=== PATIENT | male | born 1970 | race Caucasian/White ===

== ENCOUNTER 2019-06-10 20:19 | Emergency (ER) | payer MEDICAID ==
[~2019-06-10] VITALS: Ht 175.3 cm; Wt 90.7 kg
--- NOTE | 2019-06-10 20:40 | NUR ---
ED Nurse Note: RECIEVED PT FROM STREETS, HERE WITH C/O FEELING SUICIDAL, PT HAS HX OF DEPRESSION AND STATES HAS PLAN TO JUMP OFF BUILDING, PT OFF MEDS, EFFEXOR, DENEIS BEING HOMICIDAL OR ANY HALLUCINATIONS, PT IS CALM AND COOPERATIVE, ASKING FOR PSYCH PLACEMENT AND FOOD, PT PLACED ON SUICIDAL PRECAUTIONS IMMEDIATELY, WILL CONTINUE TO CLOSELY MONITOR.
--- NOTE | 2019-06-10 20:45 | Emergency Room Report ---
History of Present Illness General Chief Complaint: Behavioral Complaint Source: Patient Present Illness HPI Patient presents with complaints of suicidal ideation Reports that he has a history of depression Denies any headache denies any chest pain denies any abdominal pain Patient reports that he was on effexor many years ago however has been off his medications and was doing well prior to this event and episode Patient reports thoughts of jumping off a building Allergies: Coded Allergies: No Known Allergies (Unverified , 06/10/19) Patient History Past Medical History: see triage record Reviewed Nursing Documentation: PMH: Agreed; PSxH: Agreed Nursing Documentation-PMH Past Medical History: No Stated History Review of Systems All Other Systems: negative except mentioned in HPI Physical Exam Vital Signs Date Time Temp Pulse Resp B/P (MAP) Pulse Ox O2 Delivery O2 Flow Rate FiO2 06/10/19 20:22 98.4 68 14 123/75 (91) 96 Room Air Sp02 EP Interpretation: reviewed, normal General Appearance: well appearing, no apparent distress Head: normocephalic, atraumatic Eyes: bilateral eye PERRL, bilateral eye EOMI ENT: hearing grossly normal, normal pharynx, TMs + canals normal, uvula midline Neck: full range of motion, supple, no meningismus, no bony tend Respiratory: lungs clear, normal breath sounds, no rhonchi, no respiratory distress, no retraction, no accessory muscle use Cardiovascular #1: normal peripheral pulses, regular rate, rhythm, no edema, no gallop, no JVD, no murmur Gastrointestinal: normal bowel sounds, non tender, soft, no mass, no organomegaly, non-distended, no guarding, no hernia, no pulsatile mass, no rebound Genitourinary: no CVA tenderness Musculoskeletal: normal inspection Neurologic: oriented x3, responsive, road passenger firer III-XII nml as tested, motor strength/ tone normal, sensory intact Psychiatric: other - Somewhat flat affect Skin: no rash Lymphatic: normal inspection, no adenopathy Medical Decision Making Diagnostic Impression: Primary Impression: Suicidal thoughts ER Course Given the patient's history and presentation extensive blood work is initiated patient remains further medically stabilized and cleared After blood work also patient further cleared At this time patient requiring further disposition On a voluntary basis for psychiatric evaluation Patient transferred to psychiatric facility for continued care Labs Test 06/10/19 21:00 White Blood Count 9.9 K/UL (4.8-10.8) Red Blood Count 5.17 M/UL (4.70-6.10) Hemoglobin 15.1 G/DL (14.2-18.0) Hematocrit 44.9 % (42.0-52.0) Mean Corpuscular Volume 87 FL (80-99) Mean Corpuscular Hemoglobin 29.3 PG (27.0-31.0) Mean Corpuscular Hemoglobin Concent 33.7 G/DL (32.0-36.0) Red Cell Distribution Width 11.4 % (11.6-14.8) Platelet Count 272 K/UL (150-450) Mean Platelet Volume 7.5 FL (6.5-10.1) Neutrophils (%) (Auto) 56.8 % (45.0-75.0) Lymphocytes (%) (Auto) 32.2 % (20.0-45.0) Monocytes (%) (Auto) 8.6 % (1.0-10.0) Eosinophils (%) (Auto) 1.4 % (0.0-3.0) Basophils (%) (Auto) 1.0 % (0.0-2.0) Urine Color Yellow Urine Appearance Clear Urine pH 6.5 (4.5-8.0) Urine Specific [place] 1.020 (1.005-1.035) Urine Protein Negative (NEGATIVE) Urine Glucose (UA) Negative (NEGATIVE) Urine Ketones 2+ (NEGATIVE) Urine Blood Negative (NEGATIVE) Urine Nitrite Negative (NEGATIVE) Urine Bilirubin Negative (NEGATIVE) Urine Urobilinogen 4 MG/DL (0.0-1.0) Urine Leukocyte Esterase Negative (NEGATIVE) Sodium Level 144 MMOL/L (136-145) Potassium Level 3.9 MMOL/L (3.5-5.1) Chloride Level 109 MMOL/L (98-107) Carbon Dioxide Level 28 MMOL/L (21-32) Anion Gap 7 mmol/L (5-15) Blood Urea Nitrogen 18 mg/dL (7-18) Creatinine 1.1 MG/DL (0.55-1.30) Estimat Glomerular Filtration Rate > 60 mL/min (>60) Glucose Level 88 MG/DL (74-106) Calcium Level 9.4 MG/DL (8.5-10.1) Total Bilirubin 0.4 MG/DL (0.2-1.0) Aspartate Amino Transf (AST/SGOT) 23 U/L (15-37) Alanine Aminotransferase (ALT/SGPT) 29 U/L (12-78) Alkaline Phosphatase 71 U/L (46-116) Total Protein 7.3 G/DL (6.4-8.2) Albumin 3.9 G/DL (3.4-5.0) Globulin 3.4 g/dL Albumin/Globulin Ratio 1.1 (1.0-2.7) Salicylates Level 3.1 ug/mL (2.8-20) Urine Opiates Screen Negative (NEGATIVE) Acetaminophen Level < 2 MCG/ML (10-30) Urine Barbiturates Screen Negative (NEGATIVE) Phencyclidine (PCP) Screen Negative (NEGATIVE) Urine Amphetamines Screen Negative (NEGATIVE) Urine Benzodiazepines Screen Negative (NEGATIVE) Urine Cocaine Screen Negative (NEGATIVE) Urine Marijuana (THC) Screen Positive (NEGATIVE) Serum Alcohol < 3 mg/dL Last Vital Signs Date Time Temp Pulse Resp B/P (MAP) Pulse Ox O2 Delivery O2 Flow Rate FiO2 06/10/19 20:22 98.4 68 14 123/75 (91) 96 Room Air Status: improved Disposition: XFER TO PSYCH HOSP/UNIT Condition: Improved Scripts No Active Prescriptions or Reported Meds Kimberly Vaca DO Jun 10, 2019 20:45
[2019-06-10 21:31] LABS: EOSINOPHILS % (AUTO) 1.4 % (0.0-3.0); HEMATOCRIT 44.9 % (42.0-52.0); HEMOGLOBIN 15.1 G/DL (14.2-18.0); LYMPHOCYTES % (AUTO) 32.2 % (20.0-45.0); MEAN CORPUSCULAR VOLUME 87 FL (80-99); MONOCYTES % (AUTO) 8.6 % (1.0-10.0); NEUTROPHILS % (AUTO) 56.8 % (45.0-75.0); PLATELET COUNT 272 K/UL (150-450); RED BLOOD COUNT 5.17 M/UL (4.70-6.10); RED CELL DISTRIBUTION WIDTH 11.4 % (11.6-14.8); WHITE BLOOD COUNT 9.9 K/UL (4.8-10.8)
[2019-06-10 21:32] LABS: ANION GAP 7 mmol/L (5-15); BLOOD UREA NITROGEN 18 mg/dL (7-18); CALCIUM 9.4 MG/DL (8.5-10.1); CARBON DIOXIDE 28 MMOL/L (21-32); CHLORIDE 109 MMOL/L (98-107); CREATININE 1.1 MG/DL (0.55-1.30); POTASSIUM 3.9 MMOL/L (3.5-5.1); SODIUM 144 MMOL/L (136-145)
[2019-06-10 21:36] LABS: ALANINE AMINOTRANSFERASE 29 U/L (12-78); ALBUMIN 3.9 G/DL (3.4-5.0); ALBUMIN/GLOBULIN RATIO 1.1 (1.0-2.7); ALKALINE PHOSPHATASE 71 U/L (46-116); APPEARANCE,URINE CLEAR; ASPARTATE AMINO TRANSFERASE 23 U/L (15-37); BILIRUBIN, URINE NEGATIVE (NEGATIVE); BILIRUBIN,TOTAL 0.4 MG/DL (0.2-1.0); GLUCOSE, URINE (UA) NEGATIVE (NEGATIVE); KETONES,URINE 2+ (NEGATIVE); LEUKOCYTE ESTERASE ,URINE NEGATIVE (NEGATIVE); NITRITE,URINE NEGATIVE (NEGATIVE); PH,URINE 6.5 (4.5-8.0); PROTEIN,URINE NEGATIVE (NEGATIVE); UROBILINOGEN,URINE 4 MG/DL (0.0-1.0)
[2019-06-10 21:38] LABS: COLOR,URINE YELLOW
[2019-06-10 22:00] VITALS: BP 129/74
--- NOTE | 2019-06-10 23:00 | NUR ---
ED Nurse Note: Pt continues to rest quietly in bed, awake and alert, conversing with staff and other pt, denies pain, no attempts made or increased distress, remains on suicidal precautions, all lab specimens collected and sent, pt is calm and cooperative but remains with feelings of si, denies hi or any hallucinations, will continue to closely monitor while waiting for dispo information for pt.
--- NOTE | 2019-06-11 00:15 | NUR ---
ED Nurse Note: patient was explained that we are still waiting for the approval from the [facility]. patient was too upset stating we are taking too long for every thing here he would rather go home . dr hernández has been notified
[2019-06-11 01:00] VITALS: BP 133/68
--- NOTE | 2019-06-11 02:00 | NUR ---
ED Nurse Note: Recieved disposition information for pt, pt is to be transferred to psych facility, pt is awake and alert and informed and agrees, transfer forms signed, pt in bed awake and alert, given sandwich and juice, tolerated well, no cp, no sob or labored breathing, will continuetot monitor on suicidal pecautions while waiting for pt transfer time.
--- NOTE | 2019-06-11 03:00 | NUR ---
ED Nurse Note: PATIENT SLEEPING WITH NAD. RESPIRATION EVEN AND UNLABORED.
--- NOTE | 2019-06-11 03:15 | NUR ---
ED Nurse Note: Pt to be transferred, report called to martin marino at [phone], verbal report given long with all pertinent info, pt continues to sleep quietly, nad or changes noted, will continue to monitor while waiting for pt transportation. [id number].
[2019-06-11 03:30] VITALS: BP 119/75
--- NOTE | 2019-06-11 05:45 | NUR ---
ED Nurse Note: [facility] ambulance rig#[id number] has arrived for pt transport, report, all transfer forms and pt belongings given to test driver Jose, pt is awake, alert and oriented x 4, ambulatory, denies pain, no sob or labored breathing, tp is going voluntarily, remains calm and cooperative and continues to state he is suicidal, v/s stable, nad noted during pt transport via gurney and ambulance transport.
[2019-06-11 06:00] VITALS: BP 126/64
== END 2019-06-11 06:00 ==
LOC: EMR 21:41
DX: R45.851 Suicidal ideations (principal)
CPT/HCPCS: 36415; 80053; 80307; 80329; 81003; 85025; 99285